=== PATIENT | male | born 1975 | race Two or more races ===

== ENCOUNTER 2016-12-31 23:20 | Emergency (ER) | payer SELFPAY ==
[~2016-12-31] VITALS: Ht 170.2 cm; Wt 54.4 kg
--- NOTE | 2017-01-01 01:35 | NUR ---
PT BIB SELF C/O ETOH INTOX WITH N/V TONIGHT. DENIES BLOOD IN VOMIT. ALERT, ABLE TO MAKE NEEDS KNOWN. AMBULATORY WITH STEADY GAIT. NAD NOTED. IN ER BED 12.
[2017-01-01] MEDS ORDERED: LORAZEPAM INJ 2 MG/ML VIAL ONE (01:50)
[2017-01-01] MEDS ORDERED: PANTOPRAZOLE 40 MG VIAL ONE (01:51)
[2017-01-01] MEDS ORDERED: IV NS 0.9% 1,000 ML ONE (01:51)
[2017-01-01] MEDS ORDERED: IV SET PRIMARY 1 EA INFUS.SET MC ONE (01:51)
[2017-01-01] MEDS ORDERED: ONDANSETRON HCL/PF 4 MG/2 ML VIAL ONE (01:51)
[2017-01-01 02:00] LABS: BASOPHILS % (AUTO) 0.4 % (0.0-2.0); EOSINOPHILS # (AUTO) 0.3 /CMM (0.0-0.7); HEMATOCRIT 49 % (39-51); HEMOGLOBIN 16.3 g/dL (13.5-17.5); LYMPHOCYTES # (AUTO) 2.1 /CMM (0.8-4.8); LYMPHOCYTES % (AUTO) 39.4 % (20.0-44.0); MEAN CORPUSCULAR HEMOGLOBIN 27 PG (26.0-33.0); MEAN CORPUSCULAR HGB CONC 33 g/dl (31.0-36.0); MEAN CORPUSCULAR VOLUME 82 fL (80-96); MONOCYTES # (AUTO) 0.5 /CMM (0.1-1.30); MONOCYTES % (AUTO) 10.3 % (2.0-12.0); NEUTROPHILS # (AUTO) 2.4 /CMM (1.8-8.9); NEUTROPHILS % (AUTO) 44.9 % (43.0-81.0); PLATELET COUNT (AUTO) 251 /CMM (150-450); RDW COEFFICIENT OF VARIATION 14.4 (11.5-15.0); WHITE BLOOD COUNT (AUTO) 5.3 K/uL (4.3-11.0)
[2017-01-01] MEDS: LORAZEPAM INJ 2 MG/ML VIAL IV ONE (02:00)
[2017-01-01] MEDS: IV NS 0.9% 1,000 ML BAG IV ONE (02:00)
[2017-01-01] MEDS: PANTOPRAZOLE 40 MG VIAL IV ONE (02:00)
[2017-01-01] MEDS: ONDANSETRON HCL/PF 4 MG/2 ML VIAL IVP ONE (02:00)
--- NOTE | 2017-01-01 02:06 | NUR ---
REPORT GIVEN TO ANA, CONTACT CLERK FOR ANEL.
[2017-01-01 02:11] LABS: CALCIUM, SERUM 8.8 mg/dL (8.5-10.1); CARBON DIOXIDE 27 mmol/L (21-32); CHLORIDE 103 mmol/L (98-107); GFR 83 mL/min (>60); GLUCOSE 98 mg/dL (74-106); POTASSIUM 4.2 mmol/L (3.5-5.1); SODIUM SERUM 141 mmol/L (136-145); UREA NITROGEN, BLOOD 9 mg/dL (7-18)
[2017-01-01 02:17] LABS: ALANINE AMINOTRANSFERASE 53 U/L (12-78); ALBUMIN 4.3 g/dL (3.4-5.0); ALKALINE PHOSPHATASE 106 U/L (46-116); ASPARTATE AMINOTRANSFERASE 31 U/L (15-37); BILIRUBIN,DIRECT 0.1 mg/dL (0.0-0.2); BILIRUBIN,TOTAL 0.6 mg/dL (0.2-1.0); LIPASE 65 U/L (73-393); TOTAL PROTEIN, SERUM 8.2 g/dL (6.4-8.2)
[2017-01-01 02:18] LABS: TROPONIN I < 0.017 ng/mL (0.00-0.056)
[2017-01-01] MEDS ORDERED: MAG HYDROX/AL HYDROX/SIMETH 30 ML UDC ONE (05:18)
[2017-01-01] MEDS ORDERED: LIDOCAINE VISCOUS 2% UD 15 ML UDC ONE (05:19)
[2017-01-01] MEDS ORDERED: DICYCLOMINE HCL 10 MG/5 ML UDC ONE (05:19)
[2017-01-01] MEDS: DICYCLOMINE HCL 10 MG CAPSULE PO ONE (05:34)
[2017-01-01] MEDS: MAG HYDROX/AL HYDROX/SIMETH 30 ML UDC PO ONE (05:35)
[2017-01-01] MEDS: HYDROMORPHONE INJ 2 MG/ML DISP.SYRIN IV ONE (05:35)
[2017-01-01] MEDS: LIDOCAINE VISCOUS 2% UD 15 ML UDC MM ONE (05:35)
[2017-01-01 05:47] VITALS: BP 112/72
--- NOTE | 2017-01-01 05:49 | NUR ---
IV removed. Catheter intact and site benign. Pressure and 4x4 applied to site. No bleeding noted. Patient discharged to home in stable condition. Written and verbal after care instructions given. Patient verbalizes understanding of instruction. PT AMBULATED OUT WITH A STEADY GAIT. VSS. NO ATAXIA NOTED.
== END 2017-01-01 05:48 | disposition home or self-care (01) ==
LOC: ER 23:20
DX: R10.13 Epigastric pain (principal); R12 Heartburn; F10.20 Alcohol dependence, uncomplicated; I10 Essential (primary) hypertension
CPT/HCPCS: 36415; 80048-TC; 80076-TC; 83690-TC; 84484-TC; 85025-TC; A4606; C9113; G0480; J2060; J2405; J7030; Z7610